=== PATIENT | male | born 1930 | race American Indian/Alaskan Native ===

== ENCOUNTER 2017-02-10 07:21 | Emergency (ER) | payer MEDICARE ==
[2017-02-10 07:21] VITALS: BMI 22.8
[2017-02-10 07:33] VITALS: TEMP 97.8
--- NOTE | 2017-02-10 08:20 | C.PDOC ---
History Of Present Illness 86 year old male was sent from care home to the ED for evaluation by Dr. Elda Lau. Patient denies any physical complaints at this time. 1050 am pt seen by Dr Lau; ray removed. will d/c with Flomax and Levaquinf/u Dr Lau one month Time Seen by Provider: 02/10/17 07:34 Chief Complaint (Nursing): Male Genitourinary History Per: Patient History/Exam Limitations: no limitations Severity: None Pain Scale Rating Of: 0 Associated Symptoms: denies: Fever, Chills, Nausea, Vomiting Recent travel outside of the [place]: No Additional History Per: Prison Past Medical History Reviewed: Historical Data, Nursing Documentation, Vital Signs Vital Signs: Last Vital Signs Temp 97.8 F 02/10/17 11:48 Pulse 85 02/10/17 11:48 Resp 20 02/10/17 11:48 BP 153/77 H 02/10/17 11:48 Pulse Ox 100 02/10/17 11:48 - Medical History PMH: Anemia, CAD, Emphysema, HIV, HTN, Hypercholesterolemia, Kidney Stones, Pneumonia, Chronic Kidney Disease Surgical History: Appendectomy, Coronary Stent Denies: Pacemaker - [facility] Procedures EXTIRPATION OF MATTER FROM L INT CAROTID, OPEN APPROACH (01/04/17) INJECT ANTICOAGULANT (04/10/05) OTHER APPENDECTOMY (07/17/00) OTHER LOCAL DESTRUC SKIN (04/06/14) PEDICLE GRAFT/FLAP NOS (04/06/14) SUPPLEMENT L INT CAROTID WITH NONAUT SUB, OPEN APPROACH (01/04/17) Family History: States: CAD, Hypertension - Social History Hx Tobacco Use: No Hx Alcohol Use: No Hx Substance Use: No - Immunization History Hx Tetanus Toxoid Vaccination: No Hx Influenza Vaccination: No Hx Pneumococcal Vaccination: No Review Of Systems Constitutional: Negative for: Fever, Chills Cardiovascular: Negative for: Chest Pain Respiratory: Negative for: Shortness of Breath Gastrointestinal: Negative for: Nausea, Vomiting, Abdominal Pain, Diarrhea Genitourinary: Negative for: Dysuria Physical Exam - Physical Exam Appears: Non-toxic, No Acute Distress, Other (Patient appears comfortable on exam. ) Skin: Warm, Dry, Ecchymosis (multiple ecchymosis on the abdomen ) Head: Atraumatic Eye(s): bilateral: Normal Inspection, EOMI Oral Mucosa: Moist Neck: Supple Chest: Symmetrical, No Deformity Cardiovascular: Rhythm Regular Respiratory: Normal Breath Sounds, No Rales, No Rhonchi, No Wheezing Gastrointestinal/Abdominal: Soft, No Tenderness, No Distention, No Guarding, No Rebound Male Genital: Other (Ray in place. ) Neurological/Psych: Oriented x3, Normal Speech, Normal Cognition ED Course And Treatment - Laboratory Results Result Diagrams: 02/10/17 08:27 02/10/17 08:27 O2 Sat by Pulse Oximetry: 99 (room air) Progress Note: UA and labs were ordered. Discussed case with Dr. Lau at 8: 10am. Disposition Discussed With : Sid Doctor Will See Patient In The: ED - Disposition Referrals: Sheron Lau MD [Staff Provider] - Disposition: OTHER INSTITUTION Disposition Time: 10:58 Condition: STABLE Additional Instructions: Take Levaquin and Flomax as prescribed. Follow up with Dr Lau in his office in one month. Return to ER for any worsening symptoms, difficulty urinating or any other concerns. Prescriptions: levoFLOXacin [Levaquin] 500 mg PO DAILY #7 tab Tamsulosin [Flomax] 0.4 mg PO DAILY #30 cap Instructions: Urinary Tract Infection in Men (ED) Forms: [facility] (Faroese), General Discharge Instructions Print Language: BRITISH - Clinical Impression Clinical Impression: UTI (urinary tract infection) due to urinary indwelling catheter - Scribe Statement The provider has reviewed the documentation as recorded by the Scribe Rubi Richardson All medical record entries made by the Scribe were at my direction and personally dictated by me. I have reviewed the chart and agree that the record accurately reflects my personal performance of the history, physical exam, medical decision making, and the department course for this patient. I have also personally directed, reviewed, and agree with the discharge instructions and disposition.
[2017-02-10 08:30] LABS: BASO # 0.1 K/uL (0.0-0.2); BASO % 1.6 % (0.0-2.0); EOS # 0.2 K/uL (0.0-0.7); EOS % 5.1 % (0.0-4.0); HEMATOCRIT 34.4 % (35.0-51.0); LYMPH # 0.9 K/uL (1.0-4.3); MEAN CELL VOLUME 78.8 fL (80.0-94.0); MEAN CORPUSCULAR HEMOGLOBIN 24.2 pg (27.0-31.0); MEAN CORPUSCULAR HGB CONC 30.8 g/dL (33.0-37.0); MONO # 0.4 K/uL (0.0-0.8); NRBC % 0.1 % (0.0-2.0); RED CELL DISTRIBUTION WIDTH 15.8 % (11.5-14.5); WHITE BLOOD COUNT 3.9 K/uL (4.8-10.8)
[2017-02-10 08:46] LABS: CHLORIDE 107 mmol/L (98-107); POTASSIUM 3.9 mmol/L (3.6-5.2)
[2017-02-10 08:48] LABS: ALB/GLOB RATIO 1.3 (1.0-2.1); ALKALINE PHOSPHATASE 64 U/L (38-126); AST/SGOT 26 U/L (17-59); BILIRUBIN,TOTAL 0.8 mg/dL (0.2-1.3); CARBON DIOXIDE 22 mmol/L (22-30); GFR AFRICAN-AMERICAN > 60; TOTAL PROTEIN 6.4 g/dL (6.3-8.3)
[2017-02-10 08:49] LABS: ALT/SGPT 58 U/L (21-72); BLOOD UREA NITROGEN 21 mg/dL (9-20); CALCIUM 9.1 mg/dl (8.6-10.4); GLUCOSE,RANDOM 92 mg/dL (75-110)
[2017-02-10 09:07] LABS: RBC URINE 38 /hpf (0-3); URINE BACTERIA OCC (<OCC); URINE BILIRUBIN NEGATIVE (NEGATIVE); URINE BLOOD 1+ (NEGATIVE); URINE COLOR Amber (YELLOW); URINE GLUCOSE (UA) NORMAL (Normal); URINE KETONE NEGATIVE (NEGATIVE); URINE LEUKOCYTE ESTERASE 3+ Leu/uL (Negative); URINE PROTEIN 2+ mg/dL (NEGATIVE); URINE TRIPLE PHOSPHATE CRYSTAL MANY /hpf (<OCC); URINE UROBILINOGEN NORMAL mg/dL (0.2-1.0); WBC URINE 660 /hpf (0-5)
[2017-02-10 09:30] LABS: SODIUM 140 mmol/L (132-148)
[2017-02-10 10:06] LABS: PROSTATE SPECIFIC ANTIGEN 2.15 ng/mL (0.00-4.0)
[2017-02-10 11:48] VITALS: BP 153/77; PULSE 85; RESP 20
[2017-02-11 07:45] VITALS: O2SAT 99
== END 2017-02-10 12:40 ==
LOC: C.ER 07:21
DX: T83.511A Infection and inflammatory reaction due to indwelling urethral catheter, initial encounter (principal); N39.0 Urinary tract infection, site not specified